=== PATIENT | male | born 1965 | race Caucasian/White ===

== ENCOUNTER 2017-12-08 07:58 | Observation (INO) ==
[2017-12-08 08:44] LABS: Basophils # 0.1 10*3/uL (0.0-0.2); Basophils % 0.8 % (0.0-0.8); Eosinophils # 0.8 10*3/uL (0.0-0.87); Eosinophils % 9.9 % (0.00-10.9); Hematocrit 42.7 VOL% (42.0-52.0); Hemoglobin 15.1 GM/DL (14.0-18.0); Immature Granulocytes % 0.8 %; Immature Granulocytes Absolute 0.07 #; Lymphocytes % 22.9 % (21.2-54.2); Mean Corpuscular HGB Conc 35.4 GM/DL (32-36); Mean Corpuscular Hemoglobin 32 PG (27-34); Mean Corpuscular Volume 89.9 FL (87-102); Mean Platelet Volume 10.5 FL (9.6-12.0); Monocytes # 0.6 10*3/uL (0.11-0.8); Monocytes % 7.3 % (1.7-12.7); Neutrophils % 58.3 % (38.7-73.9); Platelet Count 244 T/CUMM (130-400); Red Blood Count 4.75 MC/CUMM (3.8-5.5); Red Cell Distribution Width 12.7 % (9.3-17.3); White Blood Count 8.5 T/CUMM (4-12)
[2017-12-08 09:04] LABS: Alanine Aminotransferase 42 U/L (16-61); Albumin 3.5 G/DL (3.4-5.0); Alkaline Phosphatase 99 U/L (45-117); Aspartate Amino Transferase 25 U/L (0-37); Blood Urea Nitrogen 8 MG/DL (7-18); Calcium 8.9 MG/DL (8.5-10.1); Glucose 99 MG/DL (74-106); Osmolality,Calculated 278.3 MOS/KG (273-304); Potassium 3.9 MMOL/L (3.5-5.1); Sodium 141 MMOL/L (136-145); Troponin I Only < 0.015 NG/ML (0.00-0.045)
[2017-12-08 09:11] LABS: Apearance,Urine CLEAR (Clear); Bilirubin,Urine Negative (Negative); Blood, Urine Negative (Negative); Glucose,Urine (UA) Negative (Negative); Ketones,Urine Negative (Negative); Mucus,Urine Occasional /LPF (Occasional); Nitrite,Urine Negative (Negative); Protein,Urine Negative; Squamous Epithelial Cell,Urine Occasional /HPF (0-10); Urine Color Straw (Yellow); Urine Specific Gravity 1.004 (1.001-1.035); Urine Urobilinogen < 2.0 EU/DL (0.2-1.0)
[2017-12-08] MEDS ORDERED: diphenhydrAMINE CAP 25 MG CAPSULE PO PRN (10:19)
[2017-12-08] MEDS ORDERED: guaiFENesin/DM ER 600-30 MG TABLET PO PRN (10:19)
[2017-12-08] MEDS ORDERED: ZALEPLON 5 MG CAPSULE PO PRN (10:19)
[2017-12-08] MEDS ORDERED: ACETAMINOPHEN 325 MG TABLET PO PRN (10:19)
[2017-12-08] MEDS ORDERED: MORPHINE 4 MG/1 ML VIAL IV PRN (10:19)
[2017-12-08] MEDS ORDERED: DOCUSATE SODIUM 100 MG CAPSULE PO PRN (10:19)
[2017-12-08] MEDS ORDERED: ONDANSETRON 4 MG/2 ML VIAL IV PRN (10:19)
[2017-12-08] MEDS ORDERED: ALBUTEROL 2.5 MG/3 ML NEB RESP TX PRN (10:23)
[2017-12-08] MEDS ORDERED: Eluxadoline [Viberzi] 100 MG PO SCH (10:30)
[2017-12-08] MEDS ORDERED: ENOXAPARIN 40 MG/0.4 ML SYRINGE SUBCUT SCH (10:30)
[2017-12-08] MEDS ORDERED: PANTOPRAZOLE 40 MG TABLET PO SCH (10:30)
[2017-12-08] MEDS ORDERED: Umeclidinium Brm/Vilanterol Tr [Anoro Ellipta] 1 PUFF INH SCH (10:30)
[2017-12-08] MEDS: SODIUM CHLORIDE 0.9% 1,000 ML IV SCH ×2 (10:49→23:56)
[2017-12-08] MEDS: ALBUTEROL 2.5 MG/3 ML NEB RESP TX SCH ×3 (10:57→18:40)
[2017-12-08] MEDS: PANTOPRAZOLE 40 MG TABLET PO SCH (20:44)
[2017-12-09 07:13] LABS: Basophils # 0.1 10*3/uL (0.0-0.2); Basophils % 0.8 % (0.0-0.8); Eosinophils % 14.7 % (0.00-10.9); Hematocrit 39.5 VOL% (42.0-52.0); Hemoglobin 13.7 GM/DL (14.0-18.0); Immature Granulocytes % 0.6 %; Immature Granulocytes Absolute 0.04 #; Lymphocytes # 1.9 10*3/uL (1.4-4.0); Lymphocytes % 28.7 % (21.2-54.2); Mean Corpuscular HGB Conc 34.7 GM/DL (32-36); Mean Corpuscular Hemoglobin 32 PG (27-34); Mean Corpuscular Volume 91.6 FL (87-102); Mean Platelet Volume 10.7 FL (9.6-12.0); Monocytes # 0.5 10*3/uL (0.11-0.8); Monocytes % 7.4 % (1.7-12.7); Neutrophils # 3.1 10*3/uL (1.4-7.4); Neutrophils % 47.8 % (38.7-73.9); Platelet Count 210 T/CUMM (130-400); Red Blood Count 4.31 MC/CUMM (3.8-5.5); Red Cell Distribution Width 12.8 % (9.3-17.3); White Blood Count 6.5 T/CUMM (4-12)
[2017-12-09 07:39] LABS: Anisocytosis 1+; Band Neutrophils 5 % (0-10); Eosinophils 9 % (0-10); Lymphocytes 36 % (20-55); Platelet Estimate Normal; Segmented Neutrophils 43 % (50-85); Total Cells Counted 100
[2017-12-09] MEDS: ALBUTEROL 2.5 MG/3 ML NEB RESP TX SCH ×3 (07:45→14:09)
[2017-12-09 07:51] LABS: Calcium 8.6 MG/DL (8.5-10.1); Osmolality,Calculated 276.4 MOS/KG (273-304); Potassium 3.8 MMOL/L (3.5-5.1); Risk Ratio 3.49; Thyroid Stimulating Hormone 1.08 uIU/ml (0.358-3.74)
[2017-12-09] MEDS ORDERED: HYDROmorphone 2 MG/1 ML VIAL IV PRN (09:22)
[2017-12-09] MEDS ORDERED: LIDOCAINE 2% 5 ML VIAL ONE (11:29)
[2017-12-09] MEDS ORDERED: PROPOFOL 200 MG/20 ML VIAL IV ONE (11:29)
[2017-12-09 12:25] VITALS: BP 110/62
[2017-12-09] MEDS: PANTOPRAZOLE 40 MG TABLET PO SCH (14:01)
[2017-12-09] MEDS: SODIUM CHLORIDE 0.9% 1,000 ML IV SCH (15:15)
== END 2017-12-09 15:50 | disposition home or self-care (01) ==
LOC: EDBD → EDUNIT# → N.ED 07:58 → N.EDINP 07:58 → N.2E 13:39
PROVIDERS: ADMIT Internal Medicine; ATTEND Internal Medicine